=== PATIENT | female | born 1995 | race Two or more races ===

== ENCOUNTER 2024-07-08 09:58 | Emergency (ER) | payer BC, OTHER ==
[~2024-07-08] VITALS: Ht 152.4 cm; Wt 65.0 kg
[2024-07-08 10:32] VITALS: TEMP 99.1; O2SAT 96
--- NOTE | 2024-07-08 10:56 | ED.PDOC ---
History of Present Illness HPI Comments This is a 28-year-old female who comes in with right breast pain. She was just diagnosed with breast cancer inflammatory about 2 3 weeks ago. She states she noticed a lump in April and then it started to get red and irritated. She states the pain is out of control she is on oxycodone at home and really does not help. She is supposed to start chemotherapy tomorrow. Patient is being treated at [facility] is primarily here for pain management. Patient also is having some nausea. No fever or chills Chief Complaint: Breast pain Time Seen by MD: 10:08 Primary Care Provider: [facility] Reviewed Notes: Nurses Notes, Medications, Allergies Allergies: Coded Allergies: NO KNOWN ALLERGIES (Unverified , 07/08/24) Information Source: Patient Mode of Arrival: Wheelchair Past Medical History PAST MEDICAL HISTORY: Denies Past Medical History (Other): Breast cancer- inflammatory Surgical History: Denies all surgeries INTERNAL COMBUSTION ENGINE SUBASSEMBLER History: No Pertinent INTERNAL COMBUSTION ENGINE SUBASSEMBLER History Family History Family History: Unknown Social History Smoker: Non-Smoker Alcohol: Denies ETOH Use Drugs: Denies Drug Use Gastrointestinal: reports: nausea, poor appetite Integumetry: reports: others (Right breast pain) Physical Exam General Appearance: Mild Distress HEENT: Normal ENT Inspection, Pharynx Normal, TMs Normal Neck: Non-Tender, Normal Inspection Respiratory: Lungs Clear, Normal Breath Sounds Cardiovascular: Regular Rate/Rhythm Breast Exam: (R) Mass, (R) Tenderness (Right breast is hot with erythema no drainage noted extremely tender on palpation swollen) Gastrointestinal: Non Tender, Normal Bowel Sounds Genitalia: Deferred Pelvic: Deferred Rectal: Deferred Extremities: Normal inspection, Normal range of motion Neurologic: Alert, Normal Affect, Normal Mood, Other (In pain) Cerebellar Function: Normal Reflexes: NOT DONE Skin: Dry, Warm Lymphatic: Axilla Node Tender (R) Was a procedure done? Was a procedure done?: No Differential Dx Considerations may include: Cellulitis versus abscess X-Ray, Labs, Meds, VS Vital Signs Date Time Temp Pulse Resp B/P (MAP) Pulse Ox O2 Delivery O2 Flow Rate FiO2 07/08/24 11:18 82 17 99/70 07/08/24 10:32 116 24 96 Room Air 07/08/24 10:32 99.1 116 24 101/57 (72) 96 99.1 07/08/24 10:03 99.1 116 24 101/57 (65) 96 Current Medications Medications (Trade) Dose Ordered Sig/Boby Route Start Time Stop Time Status Last Admin Morphine Sulfate 4 mg ONCE ONCE IM 07/08/24 11:00 07/08/24 11:01 DC 07/08/24 11:18 Ondansetron HCl (Zofran Po) 4 mg ONCE ONCE PO 07/08/24 11:00 07/08/24 11:01 DC 07/08/24 11:10 X-Ray, Labs, Meds, VS Comment Patient seen and examined by me. Patient is new diagnosis of inflammatory breast cancer on the right being treated at [facility]. Patient is having pain 05/17 at this moment. I will give her morphine 4 mg IM and Zofran. Family has spoken to [facility] and was told to go home and they will be increasing her oral medications at home. They also instructed us not to give her any further pain medication at discharge. Patient had good pain relief after meds were given. Time of 1ST Reevaluation: 11:23 Reevaluation 1ST: Improved Patient Education/Counseling: Diagnosis, Treatment, Prognosis, Need For Follow Up Family Education/Counseling: Diagnosis, Treatment, Prognosis, Need For Follow Up Departure 1 Departure Time of Disposition: 11:23 Impression: Primary Impression: Breast cancer Additional Impression: Pain Disposition: 01 HOME / SELF CARE / HOMELESS Condition: Good Additional Instructions: Please follow the instructions given to you by [facility] for further pain management If you continued to have pain after you have done the new meds from [facility] please go to [facility] for more pain management Discharged With: Self, Relative (Sibling) Critical Care Note Critical Care Time?: No Stability Stability form required: ELINOR Boyd Jul 08, 2024 10:56
[2024-07-08] MEDS: ONDANSETRON ODT 4 MG TAB PO ONE (11:10)
[2024-07-08 11:18] VITALS: BP 99/70; PULSE 82; RESP 17
[2024-07-08] MEDS: MORPHINE SULFATE 4 MG/ML SYR/VIAL IM ONE (11:18)
== END 2024-07-08 11:26 | disposition home or self-care (01) ==
LOC: ER 09:58
DX: C50.911 Malignant neoplasm of unspecified site of right female breast (principal); C79.9 Secondary malignant neoplasm of unspecified site; N64.4 Mastodynia
CPT/HCPCS: 96372; 99283; J2270; Q0162

== ENCOUNTER 2025-07-16 13:33 | Emergency (ER) | payer SELFPAY ==
[~2025-07-16] VITALS: Ht 152.4 cm; Wt 59.6 kg
[2025-07-16 13:34] VITALS: BP 115/77; PULSE 67; RESP 20; TEMP 97.6; O2SAT 100
[2025-07-16] MEDS ORDERED: ONDANSETRON HCL 4 MG/2 ML VIAL IV ONE (15:45)
[2025-07-16] MEDS ORDERED: SODIUM CHLORIDE 0.9% 1,000 ML IV ONE (15:45)
[2025-07-16 15:59] LABS: Hematocrit 39.0 % (36.0-46.0); Hemoglobin 13.1 g/dL (12.2-16.2); Mean Corpuscular Hemoglobin 29.6 pg (28.0-32.0); Mean Corpuscular Volume 88.2 fL (80.0-100.0); Nucleated Red Blood Cells % 0.0 %
[2025-07-16 16:04] LABS: Chloride 105 mmol/L (98-107); Potassium 4.6 mmol/L (3.5-5.1); Sodium 143 mmol/L (136-145)
[2025-07-16 16:05] LABS: Anion Gap 10 (5-15); Calcium 9.7 mg/dL (8.7-10.4); Carbon Dioxide 28 mmol/L (20-31)
[2025-07-16 16:10] LABS: BUN/Creatinine Ratio 24.1 (10.0-20.0); Blood Urea Nitrogen 20 mg/dL (9-23); Glucose 101 mg/dL (74-106)
--- NOTE | 2025-07-16 16:21 | ED.PDOC ---
GI ASSESSMENT HPI Comments 29 y/o F, with PMHx of breast cancer presents to the ED for CC of diarrhea. Patient states, she has been experiencing symptoms of diarrhea with associated weakness and headaches x6days. Patient reports, new onset symptoms of vomiting starting today (07/16/25). Patient describes, emesis to be "yellow" and "bile" like in appearance. Patient denies abdominal pain, melena, hematemesis, or urinary symptoms. No other symptoms or modifying factors are present at this time. Chief Complaint: Diarrhea Time Seen by MD: 16:00 Primary Care Provider: [facility] Reviewed Notes: Nurses Notes, Medications, Allergies Allergies: Coded Allergies: NO KNOWN ALLERGIES (Unverified , 07/08/24) Home Meds Active Scripts Ondansetron Odt 4MG Tab (ZOFRAN PO) 4 Mg Tb, 4 MG PO Q8HPRN PRN for 5 Days, #15 TAB ODT TAB-DISSOLVE IN MOUTH, THEN SWALLOW Prov:ANNABELLA CASEY MD 07/16/25 Information Source: Patient Mode of Arrival: Ambulatory Timing: Days Duration: Since onset Prehospital treatment: None Vomitus: Watery Stool: Watery Severity: Moderate Recent: None Recent Hx of: None Pain Location: None Modifying Factors: Nothing Associated sign and symptoms: Nausea, Vomiting, Diarrhea Past Medical History PAST MEDICAL HISTORY: Cancer Surgical History: Denies all surgeries Surgical History (Other): mastectomy BROKERAGE BRANCH MANAGER History: Denies all BROKERAGE BRANCH MANAGER Hx Family History Family History: Unknown Social History Smoker: Non-Smoker Alcohol: Denies ETOH Use Drugs: Denies Drug Use Lives In: Home Constitutional: reports: weakness; denies: chills, diaphoresis, fatigue, fever, malaise, sweats, others EENTM: denies: blurred vision, double vision, ear bleeding, ear discharge, ear drainage, ear pain, ear ringing, eye pain, eye redness, hearing loss, mouth pain, mouth swelling, nasal discharge, nose bleeding, nose congestion, nose pain, photophobia, tearing, throat pain, throat swelling, voice changes, others Respiratory: denies: cough, hemoptysis, orthopnea, SOB at rest, shortness of breath, SOB with excertion, stridor, wheezing, others Cardiovascular: denies: chest pain, dizzy spells, diaphoresis, Dyspnea on exertion, edema, irregular heart beat, left arm pain, lightheadedness, palpitations, PND, syncope, others Gastrointestinal: reports: diarrhea; denies: abdomen distended, abdominal pain, blood streaked bowels, constipated, dysphagia, difficulty swallowing, hematemes is, melena, nausea, poor appetite, poor fluid intake, rectal bleeding, rectal pain, vomiting, others Genitourinary: denies: abnormal vagina bleeding, burning, dyspareunia, dysuria, flank pain, frequency, hematuria, incontinence, pain, , vagina discharge, urgency, others Neurological: reports: headache; denies: dizziness, fainting, left sided numbness, left sided weakness, numbness, paresthesia, pre-existing deficit, right sided numbness, right sided weakness, seizure, speech problems, tingling, tremors, weakness, others Musculoskeletal: denies: back pain, gout, joint pain, joint swelling, muscle pain, muscle stiffness, neck pain, others Integumetry: denies: bruises, change in color, change in hair/nails, dryness, laceration, lesions, lumps, rash, wounds, others Allergic/Immunocompromised: denies: Difficulty Healing, Frequent Infections, Hives, Itching, others Hematologic/Lymphatic: denies: anemia, blood clots, easy bleeding, easy bruising, swollen glands, others Endocrine: denies: excessive hunger, excessive sweating, excessive thirst, excessive urination, flushing, intolerance to cold, intolerance to heat, unexplained weight gain, unexplained weight loss, others Psychiatric: denies: anxiety, bipolar disorder, depression, hopeless, panic disorder, schizophrenia, sleepless, suicidal, others All Other Systems: Reviewed and Negative Physical Exam General Appearance: No Apparent Distress, Normal HEENT: Normal ENT Inspection, Pharynx Normal Neck: Full Range of Motion, Non-Tender, Normal, Normal Inspection Respiratory: Chest Non-Tender, Lungs Clear, No Accessory Muscle Use, No Respiratory Distress, Normal Breath Sounds Cardiovascular: No Edema, No Murmur, No Gallop, Normal Peripheral Pulses, Regular Rate/Rhythm Breast Exam: Deferred Gastrointestinal: No Organomegaly, Non Tender, No Pulsatile Mass, Normal Bowel Sounds, Soft Genitalia: Deferred Pelvic: Deferred Rectal: Deferred Extremities: No calf tenderness, Normal capillary refill, Normal inspection, Normal range of motion, Non-tender, No pedal edema Musculoskeletal : Apperance: Normal Neurologic: Alert, jewel bearing polisher II-XII nml as Tested, No Motor Deficits, Normal Affect, Normal Mood, No Sensory Deficits Cerebellar Function: Normal Reflexes: Normal Skin: Dry, Normal Color, Warm Lymphatic: No Adenopathy Was a procedure done? Was a procedure done?: No GI differential Dx Differential Diagnosis: Diverticular disease, Gastritis/PUD, Gastroenteritis, Food Poisoning, Bacterial, Viral X-Ray, Labs, Meds, VS Vital Signs Date Time Temp Pulse Resp B/P (MAP) Pulse Ox O2 Delivery O2 Flow Rate FiO2 07/16/25 13:34 97.6 67 20 115/77 100 97.6 Lab Test 07/16/25 15:45 Range/Units White Blood Count 5.6 4.4-10.8 10^3/uL Red Blood Count 4.42 4.0-5.20 10^6/uL Hemoglobin 13.1 12.2-16.2 g/dL Hematocrit 39.0 36.0-46.0 % Mean Corpuscular Volume 88.2 80.0-100.0 fL Mean Corpuscular Hemoglobin 29.6 28.0-32.0 pg Mean Corpuscular Hemoglobin Concent 33.5 32.0-36.0 g/dL Red Cell Distribution Width 15.3 H 11.8-14.3 % Platelet Count 268 140-450 10^3/uL Mean Platelet Volume 7.8 6.9-10.8 fL Neutrophils (%) (Auto) 73.3 37.0-80.0 % Lymphocytes (%) (Auto) 17.8 10.0-50.0 % Monocytes (%) (Auto) 8.3 0.0-12.0 % Eosinophils (%) (Auto) 0.1 0.0-7.0 % Basophils (%) (Auto) 0.5 0.0-2.0 % Neutrophils # (Auto) 4.1 1.6-8.6 10 ^3/uL Lymphocytes # (Auto) 1.0 0.4-5.4 10 ^3/uL Monocytes # (Auto) 0.5 0-1.3 10 ^3/uL Eosinophils # (Auto) 0 0-0.8 10 ^3/uL Basophils # (Auto) 0 0-0.2 10 ^3/uL Nucleated Red Blood Cells 0.0 % Sodium Level 143 136-145 mmol/L Potassium Level 4.6 3.5-5.1 mmol/L Chloride Level 105 98-107 mmol/L Carbon Dioxide Level 28 20-31 mmol/L Anion Gap 10 5-15 Blood Urea Nitrogen 20 9-23 mg/dL Creatinine 0.83 0.550-1.02 mg/dL Glomerular Filtration Rate Calc 97 >90 mL/min BUN/Creatinine Ratio 24.1 H 10.0-20.0 Serum Glucose 101 74-106 mg/dL Calcium Level 9.7 8.7-10.4 mg/dL Troponin I High Sensitivity 4 </=34 ng/L X-Ray, Labs, Meds, VS Comment Patient presents with a history of headache most likely related to benign etiology such as tension headache or migraine with symptomatic control achieved in the emergency department. On history no high risk features such as AM temporal component, persistent nausea/vomiting, sudden thunderclap in onset, changes in vision, jaw claudication, seizure. Patient to be discharged home with symptomatic management, avoidance of headache triggers and close follow up with primary care provider for referral to neurology as indicated. Counseled patient to maintain headache journal to assist with identification of triggers. Reviewed supportive care and return precautions including, but not limited to fever > 100.4, severe headache, vision changes, PO intolerance. Patient is in agreement with the plan and all questions answered. Considered SAH, meningitis/encephalitis, stroke, space-occupying lesion, GCA, acute angle closure glaucoma, vascular dissection, CVT, IIH, PRES, carbon monoxide poisoning, preeclampsia/eclampsia, but consider these to be less likely based on history/physical/evaluation as above. Time of 1ST Reevaluation: 16:30 Reevaluation 1ST: Improved Patient Education/Counseling: Diagnosis, Treatment Family Education/Counseling: No Family Present SEPSIS Sepsis Screen Date sepsis recognized/suspect: Jul 16, 2025 Time Sepsis recognized/suspect: 1336 Recent Procedure: No On Antibiotic Therapy: No Respiratory Rate >20: No Heart Rate >90: No Temp<36 C (96.8 F) or >38.3 C: No SBP <90 or MAP <65 mmHG: No New Acute Mental Status Change: No Is the patient on CPAP, BIPAP,: No Physician Orders Troponin-I Hs (07/16/25 16:34) Troponin-I Hs (07/16/25 18:34) Vital Signs Date Time Temp Pulse Resp B/P (MAP) Pulse Ox O2 Delivery O2 Flow Rate FiO2 07/16/25 13:34 97.6 67 20 115/77 100 97.6 Laboratory Tests Test 07/16/25 15:45 White Blood Count 5.6 10^3/uL (4.4-10.8) Departure 1 Departure Time of Disposition: 17:08 Impression: Primary Impression: Diarrhea Additional Impressions: Headache Dehydration Disposition: HOME / SELF CARE / HOMELESS Condition: Stable e-Prescriptions Ondansetron Odt 4MG Tab (ZOFRAN PO) 4 Mg Tb 4 MG PO Q8HPRN PRN for 5 Days, #15 TAB ODT TAB-DISSOLVE IN MOUTH, THEN SWALLOW Prov: ANNABELLA CASEY MD 07/16/25 Discharged With: Self Critical Care Note Critical Care Time?: Yes (30 min-critical care time only) Stability Stability form required: No Heart Score Heart Score: Heart Score Response (Comments) Value History N/A 0 EKG N/A 0 Age N/A 0 Risk Factors N/A 0 Troponin N/A 0 Total 0 I personally scribed for ANNABELLA CASEY MD ([email or web address]) on 07/16/25 at 16:21. Electronically submitted by Tiffany Schmitz ([email or web address]). ANNABELLA CASEY MD Jul 16, 2025 16:21
[2025-07-16] MEDS ORDERED: ZOFR4T PO (16:33)
== END 2025-07-16 18:37 | disposition home or self-care (01) ==
LOC: ER 13:33
DX: R19.7 Diarrhea, unspecified (principal); R51.9 Headache, unspecified; E86.0 Dehydration; Z90.10 Acquired absence of unspecified breast and nipple
CPT/HCPCS: 36415; 80048; 84484; 85025